=== PATIENT | male | born 1945 | race Caucasian/White ===

== ENCOUNTER 2017-08-23 18:11 | Emergency (ER) | payer MEDICARE, OTHER ==
[~2017-08-23] VITALS: Ht 175.3 cm; Wt 87.0 kg
[~2017-08-23 18:11] MED LIST: IRBE150T49 PO; ZOCO40TA PO
[2017-08-23 18:14] VITALS: BP 186/78; PULSE 64; RESP 16; TEMP 97.9; O2SAT 99
[2017-08-23] MEDS ORDERED: IRBE150T15 PO (18:23)
[2017-08-23] MEDS ORDERED: SIMV20TA PO (18:23)
[2017-08-23] MEDS ORDERED: SODIUM CHLORIDE 0.9% FLUSH 10 ML FLUSH IVF PRN (18:45)
--- NOTE | 2017-08-23 18:48 | PD ---
HPI Chief Complaint: Headache Time Seen by Provider: 18:22 Travel History International Travel<30 days: No Contact w/Intl Traveler<30days: No Traveled to known affect area: No History of Present Illness HPI The patient is a 72 year-old male who presents to the emergency department for headache. The patient has intermittent headaches of the last 2 days as well as elevated blood pressure. The patient states he recently had his blood pressure medication changed from moderate 150 mg daily to 300 mg daily. However, the patient states his blood pressure continues to be elevated with systolic reading in the 170s a diastolic in the 90s. The headache is posterior, described as pressure, intermittent, and not associated with any blurry vision or visual acuity changes. The patient denies any chest pain, shortness breath, nausea, vomiting, or abdominal pain. He denies any focal deficits. The patient states his blood pressure has been significantly more elevated over the last 2 months since he turns 72. The patient's symptoms are mild to moderate, possibly exacerbated by elevated blood pressure, there are no current alleviating factors. The patient had his blood pressure evaluated earlier today and the pharmacist referred him to the emergency department. [facility] Past Medical History Cardiovascular Problems: Yes (htn on meds) High Cholesterol: Yes Diminished Hearing: No Hypertension: Yes Influenza Vaccination: No Past Surgical History Appendectomy: Yes Tonsillectomy: Yes Social History Alcohol Use: Yes (RARE) Tobacco Use: No Substance Use: No Allergies-Medications (Allergen,Severity, Reaction): Coded Allergies: oxycodone (Unverified Allergy, Severe, GI UPSET, 08/23/17) Reported Meds & Prescriptions Reported Meds & Active Scripts Active Reported Simvastatin 20 Mg Tab 20 Mg PO DAILY Irbesartan 150 Mg Tab 150 Mg PO DAILY Review of Systems Except as stated in HPI: all other systems reviewed are Neg Eyes: No: Blurred Vision HENT: Positive: Headaches, No: Lightheadedness, Neck Pain Cardiovascular: No: Chest Pain or Discomfort Respiratory: No: Shortness of Breath Gastrointestinal: No: Nausea, Vomiting, Abdominal Pain Neurologic: Positive: Headache, No: Dizziness, Focal Abnormalities, Change in Mentation, Paresthesia, Sensory Disturbance Physical Exam Narrative GENERAL: Awake, alert, pleasant 72-year-old male who appears his stated age and is in no acute respiratory distress. SKIN: Focused skin assessment warm/dry. HEAD: Atraumatic. Normocephalic. EYES: Pupils equal and round. Pupils are 4 mm bilateral and reactive. EOMs are intact. ENT: No nasal bleeding or discharge. Mucous membranes pink and moist. NECK: Trachea midline. No JVD. No meningeal signs noted. Full range of motion with flexion, extension, and rotation. CARDIOVASCULAR: Regular rate and rhythm. No murmur appreciated. RESPIRATORY: No accessory muscle use. Clear to auscultation. Breath sounds equal bilaterally. MUSCULOSKELETAL: No obvious deformities. No clubbing. No cyanosis. No edema. NEUROLOGICAL: Awake and alert. No obvious cranial nerve deficits. Motor grossly within normal limits. Normal speech. Nonfocal. Oriented 4. Follows commands without difficulty. PSYCHIATRIC: Appropriate mood and affect; insight and judgment normal. Data Data Last Documented VS Vital Signs Date Time Temp Pulse Resp B/P (MAP) Pulse Ox O2 Delivery O2 Flow Rate FiO2 08/23/17 19:06 98 08/23/17 18:14 97.9 64 16 186/78 (114) Orders Orders Complete Blood Count With Diff (08/23/17 18:39) Comprehensive Metabolic Panel (08/23/17 18:39) Ct Brain W/O Iv Contrast(Rout) (08/23/17 18:39) Ecg Monitoring (08/23/17 18:39) Iv Access Insert/Monitor (08/23/17 18:39) Oximetry (08/23/17 18:39) Sodium Chloride 0.9% Flush (Ns Flush) (08/23/17 18:45) Creatine Kinase (Cpk) (08/23/17 18:39) Troponin I (08/23/17 18:39) Electrocardiogram (08/23/17 ) Labs Laboratory Tests Test 08/23/17 18:45 White Blood Count 6.5 TH/MM3 Red Blood Count 4.84 MIL/MM3 Hemoglobin 14.0 GM/DL Hematocrit 41.9 % Mean Corpuscular Volume 86.6 FL Mean Corpuscular Hemoglobin 29.0 PG Mean Corpuscular Hemoglobin Concent 33.4 % Red Cell Distribution Width 12.2 % Platelet Count 250 TH/MM3 Mean Platelet Volume 8.0 FL Neutrophils (%) (Auto) 60.8 % Lymphocytes (%) (Auto) 26.3 % Monocytes (%) (Auto) 10.5 % Eosinophils (%) (Auto) 1.8 % Basophils (%) (Auto) 0.6 % Neutrophils # (Auto) 4.0 TH/MM3 Lymphocytes # (Auto) 1.7 TH/MM3 Monocytes # (Auto) 0.7 TH/MM3 Eosinophils # (Auto) 0.1 TH/MM3 Basophils # (Auto) 0.0 TH/MM3 CBC Comment DIFF FINAL Differential Comment Blood Urea Nitrogen 13 MG/DL Creatinine 0.86 MG/DL Random Glucose 102 MG/DL Total Protein 6.8 GM/DL Albumin 3.6 GM/DL Calcium Level 8.0 MG/DL Alkaline Phosphatase 54 U/L Aspartate Amino Transf (AST/SGOT) 17 U/L Alanine Aminotransferase (ALT/SGPT) 36 U/L Total Bilirubin 0.2 MG/DL Sodium Level 141 MEQ/L Potassium Level 3.8 MEQ/L Chloride Level 109 MEQ/L Carbon Dioxide Level 24.7 MEQ/L Anion Gap 7 MEQ/L Estimat Glomerular Filtration Rate 88 ML/MIN Total Creatine Kinase 74 U/L Troponin I LESS THAN 0.02 NG/ML MDM Medical Decision Making Medical Screen Exam Complete: Yes Emergency Medical Condition: Yes Medical Record Reviewed: Yes Interpretation(s) EKG reveals normal sinus rhythm with a rate of 61. Moderate intraventricular conduction the leg with a QRS of 118 ms. Inverted T-wave in lead 3. Last Impressions Head CT 08/23/17 [id number] Signed Impressions: Service Date/Time: Wednesday, August 23, 2017 19:02 - CONCLUSION: Negative noncontrast head CT. Tristan Miller MD Laboratory Tests Test 08/23/17 18:45 White Blood Count 6.5 TH/MM3 Red Blood Count 4.84 MIL/MM3 Hemoglobin 14.0 GM/DL Hematocrit 41.9 % Mean Corpuscular Volume 86.6 FL Mean Corpuscular Hemoglobin 29.0 PG Mean Corpuscular Hemoglobin Concent 33.4 % Red Cell Distribution Width 12.2 % Platelet Count 250 TH/MM3 Mean Platelet Volume 8.0 FL Neutrophils (%) (Auto) 60.8 % Lymphocytes (%) (Auto) 26.3 % Monocytes (%) (Auto) 10.5 % Eosinophils (%) (Auto) 1.8 % Basophils (%) (Auto) 0.6 % Neutrophils # (Auto) 4.0 TH/MM3 Lymphocytes # (Auto) 1.7 TH/MM3 Monocytes # (Auto) 0.7 TH/MM3 Eosinophils # (Auto) 0.1 TH/MM3 Basophils # (Auto) 0.0 TH/MM3 CBC Comment DIFF FINAL Differential Comment Blood Urea Nitrogen 13 MG/DL Creatinine 0.86 MG/DL Random Glucose 102 MG/DL Total Protein 6.8 GM/DL Albumin 3.6 GM/DL Calcium Level 8.0 MG/DL Alkaline Phosphatase 54 U/L Aspartate Amino Transf (AST/SGOT) 17 U/L Alanine Aminotransferase (ALT/SGPT) 36 U/L Total Bilirubin 0.2 MG/DL Sodium Level 141 MEQ/L Potassium Level 3.8 MEQ/L Chloride Level 109 MEQ/L Carbon Dioxide Level 24.7 MEQ/L Anion Gap 7 MEQ/L Estimat Glomerular Filtration Rate 88 ML/MIN Total Creatine Kinase 74 U/L Troponin I LESS THAN 0.02 NG/ML Differential Diagnosis Differential diagnosis includes hypertension, hypertensive emergency, hypertensive urgency, hypertensive encephalopathy, medication side effect, ACS, acute kidney injury. Narrative Course IV was established, labs are drawn and sent, and the patient was placed on cardiac telemetry monitoring and continuous pulse oximetry monitoring. The patient declined pain medications for the headache. Patient's blood pressure was reevaluated, was 150/70s. The patient still has a dull headache, therefore , CT the brain was ordered to rule out intracranial hemorrhage. CT the brain was negative. Troponin and CPK are unremarkable. BUN and creatinine are within normal limits. No evidence of end organ damage. The patient was reevaluated at 8 PM. The patient was currently asymptomatic. He will be provided a copy of his CT results and lab results at discharge. He does have a home monitoring system for his blood pressure, he is advised to check it once in the morning prior to activity and caffeine, keep a log of his blood pressure recordings, and follow-up with his primary physician. The patient agrees and understands. Diagnosis Primary Impression: Hypertension Qualified Codes: I10 - Essential (primary) hypertension Patient Instructions: General Instructions Additional Instructions: Please provide the patient a copy of his EKG results, CT results, and lab results at discharge. Keep a blood pressure log daily. Follow-up with your primary physician. Return if symptoms worsen or progress. Med/Other Pt SpecificInfo: No Change to Meds Disposition: 01 DISCHARGE HOME Condition: Stable Miguel Mcqueen MD Aug 23, 2017 18:48
[2017-08-23 18:57] LABS: BASOPHIL % 0.6 % (0.0-2.0); EOSINOPHIL # 0.1 TH/MM3 (0-0.4); EOSINOPHIL % 1.8 % (0.0-4.0); HEMATOCRIT 41.9 % (39.0-51.0); HEMO FLAGS DIFF FINAL; LYMPH % 26.3 % (9.0-44.0); LYMPHOCYTE # 1.7 TH/MM3 (1.0-4.8); MEAN CELL VOLUME 86.6 FL (80.0-100.0); MEAN CORPUSCULAR HGB CONC 33.4 % (32.0-36.0); MONO % 10.5 % (0.0-8.0); NEUT % 60.8 % (16.0-70.0); PLATELET COUNT 250 TH/MM3 (150-450); RED BLOOD COUNT 4.84 MIL/MM3 (4.50-5.90); RED CELL DISTRIBUTION WIDTH 12.2 % (11.6-17.2); WHITE BLOOD COUNT 6.5 TH/MM3 (4.0-11.0)
[2017-08-23 19:06] VITALS: O2SAT 98
[2017-08-23 19:19] LABS: CHLORIDE 109 MEQ/L (98-107); POTASSIUM 3.8 MEQ/L (3.5-5.1); SODIUM (NA) 141 MEQ/L (136-145)
[2017-08-23 19:24] LABS: ANION GAP 7 MEQ/L (5-15); BICARBONATE 24.7 MEQ/L (21.0-32.0); BLOOD UREA NITROGEN 13 MG/DL (7-18)
[2017-08-23 19:27] LABS: ALT (GPT) 36 U/L (12-78); AST (GOT) 17 U/L (15-37); GLOMERULAR FILTRATION RATE 88 ML/MIN (>89)
--- NOTE | 2017-08-23 19:28 | RADRPT ---
EXAM DATE/TIME: 08/23/2017 19:02 [place] COMPARISON: No previous studies available for comparison. INDICATIONS : Headache with hypertension. RADIATION DOSE: 61.13 CTDIvol (mGy) MEDICAL HISTORY : Hypercholesterolemia. Hypertension. SURGICAL HISTORY : Tonsillectomy. Appendectomy. ENCOUNTER: Initial ACUITY: 1 day PAIN SCALE: 5/10 LOCATION: cranial TECHNIQUE: Multiple contiguous axial images were obtained of the head. Using automated exposure control and adj ustment of the mA and/or kV according to patient size, radiation dose was kept as low as reasonably a chievable to obtain optimal diagnostic quality images. DICOM format image data is available electro nically for review and comparison. FINDINGS: CEREBRUM: The ventricles are normal for age. No evidence of midline shift, mass lesion, hemorrhage or acute in farction. No extra-axial fluid collections are seen. POSTERIOR FOSSA: The cerebellum and brainstem are intact. The 4th ventricle is midline. The cerebellopontine angle i s unremarkable. EXTRACRANIAL: The visualized portion of the orbits is intact. SKULL: The calvaria is intact. No evidence of skull fracture. CONCLUSION: Negative noncontrast head CT. Tristan Miller MD on August 23, 2017 at 19:25 Board Certified Radiologist. This report was verified electronically.
[2017-08-23 19:29] LABS: TOTAL BILIRUBIN ADULT 0.2 MG/DL (0.2-1.0)
[2017-08-23 19:30] LABS: ALKALINE PHOSPHATASE 54 U/L (45-117)
[2017-08-23 19:58] LABS: CREATINE KINASE 74 U/L (39-308)
[2017-08-23 20:15] VITALS: BP 144/62; PULSE 60; RESP 16; O2SAT 97
[2017-08-23 20:47] VITALS: BP 144/62; PULSE 60; RESP 16; O2SAT 97
--- NOTE | 2017-08-24 18:50 | EKG ---
Date Performed: 08/23/2017 Time Performed: 19:02:03 PTAGE: 72 years EKG: Sinus rhythm MARKED LEFT AXIS DEVIATION MODERATE INTRAVENTRICULAR CONDUCTION DELAY ABNORMAL ECG NO PREVIOUS TRACING DOCTOR: Jonathan Tucker Interpretating Date/Time 08/24/2017 18:49:28
== END 2017-08-23 20:30 | disposition home or self-care (01) ==
LOC: PHED 18:11
DX: I10 Essential (primary) hypertension (principal); E78.00 Pure hypercholesterolemia, unspecified; R94.31 Abnormal electrocardiogram [ECG] [EKG]; Z88.5 Allergy status to narcotic agent; Z79.899 Other long term (current) drug therapy
CPT/HCPCS: 70450; 80053; 82550; 84484; 85025; 93005

== ENCOUNTER 2018-08-22 01:01 | Observation (INO) ==
[2018-08-22 02:57] LABS: Bilirubin,Urine Negative (Negative); Clarity,Urine Clear (Clear); Color,Urine Yellow (Yellw/Straw); Glucose,Urine (UA) Negative (Negative); Leukocyte Esterase,Urine Negative (Negative); Nitrite,Urine Negative (Negative); Specific Gravity,Urine 1.025 (1.002-1.035); Urobilinogen,Urine 0.2 mg/dL (Less than 2)
[2018-08-22 03:07] LABS: Baso % (Auto) 0.6 % (0.0-2.0); Eos # (Auto) 0.1 th/mm3 (0.0-0.4); Eos % (Auto) 1.9 % (0.0-4.0); Hemoglobin 14.9 gm/dL (13.0-17.0); Lymph # (Auto) 1.3 th/mm3 (1.0-4.8); Lymph % (Auto) 23.9 % (9.0-44.0); Mean Corpuscular HGB Conc 33.8 % (32.0-36.0); Mean Corpuscular Hemoglobin 29.8 pg (27.0-34.0); Mean Corpuscular Volume 88.2 fL (80.0-100.0); Mean Platelet Volume 8.1 fL (7.0-11.0); Mono # (Auto) 0.6 th/mm3 (0.0-0.9); Mono % (Auto) 11.3 % (0.0-8.0); Neut # (Auto) 3.4 th/mm3 (1.8-7.7); Neut % (Auto) 62.3 % (16.0-70.0); Platelet Count 266 th/mm3 (150-450); Red Blood Count 4.99 mil/mm3 (4.50-5.90); Red Cell Distribution Width 12.4 % (11.6-17.2); White Blood Count 5.4 th/mm3 (4.0-11.0)
--- NOTE | 2018-08-22 03:16 | XR ---
EXAM DATE: 08/22/2018 2:44 AM EST AGE/SEX: 73 years / Male INDICATIONS: Arrythmia, palpitations. CLINICAL DATA: This is the patient's initial encounter. Patient reports that signs and symptoms have been present for 1 day and indicates a pain score of 0/10. MEDICAL/SURGICAL HISTORY: . Hypercholesterolemia. Hypertension. Appendectomy. Tonsillectomy. Right knee. Right shoulder. COMPARISON: No prior exams available for comparison. FINDINGS: Portable AP view of the chest demonstrates a normal-sized cardiac silhouette. No effusion, consolidat ion, or pneumothorax is identified. The bones and soft tissues demonstrate no acute finding. EKG line s overlie the patient. CONCLUSION: No acute cardiopulmonary abnormality is identified. Electronically signed by: Tristan Howe MD 08/22/2018 3:15 AM EST
[2018-08-22 03:20] LABS: Chloride 108 meq/L (98-107); Potassium 4.1 meq/L (3.5-5.1); Sodium 142 meq/L (136-145)
[2018-08-22 03:24] LABS: Calcium 8.4 mg/dL (8.5-10.1)
[2018-08-22 03:25] LABS: Albumin 3.8 g/dL (3.4-5.0); Anion Gap 8 meq/L (5-15); Blood Urea Nitrogen 11 mg/dL (7-18); Carbon Dioxide 25.8 meq/L (21.0-32.0); Glucose,Random 101 mg/dL (74-106); Lipase 241 U/L (73-393); Magnesium 2.3 mg/dL (1.5-2.5)
[2018-08-22 03:28] LABS: Alanine Aminotransferase 36 U/L (12-78); Aspartate Aminotransferase 23 U/L (15-37); Glomerular Filtration Rate 89 mL/min (>89)
[2018-08-22 03:29] LABS: Total Protein 7.2 g/dL (6.4-8.2)
[2018-08-22 03:29] LABS: Squamous Epithelial Cell,Urine 0-5 /hpf (0-5); WBC,Urine 0-5 /hpf (0-5)
[2018-08-22 03:30] LABS: Alkaline Phosphatase 54 U/L (45-117); Creatine Kinase 127 U/L (39-308)
[2018-08-22 03:43] LABS: Creatine Kinase MB 1.2 ng/mL (0.5-3.6)
[2018-08-22] MEDS ORDERED: Acetaminophen 500 MG Tablet PO PRN ×2 (05:07→05:10)
--- NOTE | 2018-08-22 05:10 | ED ---
HPI General Chief Complaint: Arrhythmia / Palpitations Stated Complaint: Woke up sweaty,chest burning,heart racing Time Seen by Provider: 08/22/18 02:24 Source: patient and family Mode of arrival: ambulatory Limitations: no limitations History of Present Illness HPI narrative: 73-year-old male presents to the emergency department in the care of his spouse for evaluation of awakening from sleep with sweats burning in his chest and possible palpitations. Patient states he feels some improved at this time. interjects that he did have a similar episode with tight squeezing pain 1 week ago. Patient does have risk factors for male age 73 hypertension dyslipidemia and premature onset heart disease in his father who at age 48 from myocardial infarction. Patient denies tobacco use or diabetes. Patient states that he does not take daily aspirin. Patient rates pain 0/10 at this time. complaint: Reports chest pain STEMI Alert: No Onset (ago): minute(s) Duration: intermittent and improved Onset: during rest Pain location: Reports substernal Severity: moderate Severity scale (1-10): 4 Quality: Reports tightness (x1 last week) and other (burn) Pain radiation: Reports none Relieving factors: nothing Exacerbating factors: nothing and other (at rest and awakened from sleep) Context: Denies recent illness, recent surgery, recent immobilization, recent travel, trauma/injury, new medications and history of DVT/PE Associated symptoms: Reports diaphoresis and palpitations; Denies nausea, vomiting, dyspnea, sense of impending doom, syncope, fever, cough and leg swelling Treatments prior to arrival chest pain: Reports none Related Data Home Medications Medication Instructions Recorded Confirmed irbesartan 150 mg PO DAILY 08/22/18 08/22/18 simvastatin 20 mg PO DAILY 08/22/18 08/22/18 Allergies Allergy/AdvReac Type Severity Reaction Status Date / Time oxycodone Allergy Severe GI UPSET Verified 08/22/18 03:27 codeine Allergy Rash Verified 08/22/18 02:34 tramadol AdvReac Weakness Verified 08/22/18 02:34 Review of Systems ROS: all other systems reviewed are negative [facility] Medical History Medical History High cholesterol (Acute) Hypertension (Acute) Surgical History Surgical History H/O shoulder surgery (Acute) History of appendectomy (Acute) History of hernia surgery (Acute) Hx of knee surgery (Acute) Hx of tonsillectomy (Acute) Family History Family History Father DVT (deep venous thrombosis) Social History Social History Substance History: No History of Abuse Second Hand Smoke Exposure: No Smoking Status: Never smoker How Often Do You Have a Drink Containing Alcohol: 4 or more times a week Recent Travel in [facility] within the Last 8 Weeks: No Recent Out of Country Travel within the Last 8 Weeks: No Immunization History Tetanus Immunization: Unsure Exam Narrative Exam Narrative: GENERAL: Well-nourished, well-developed patient. SKIN: Focused skin assessment warm/dry. HEAD: Normocephalic. EYES: No scleral icterus. No injection or drainage. NECK: Supple, trachea midline. No JVD or lymphadenopathy. CARDIOVASCULAR: Regular rate and rhythm without murmurs, gallops, or rubs. RESPIRATORY: Breath sounds equal bilaterally. No accessory muscle use. GASTROINTESTINAL: Abdomen soft, non-tender, nondistended. MUSCULOSKELETAL: No cyanosis, or edema. BACK: Nontender without obvious deformity. No CVA tenderness. 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 [facility] Initial Documented Vital Signs Pulse Rate 71 08/22/18 02:00 Respiratory Rate 18 08/22/18 02:00 Blood Pressure 164/73 H 08/22/18 02:00 Pulse Oximetry 96 08/22/18 02:00 Last Documented Vital Signs Temperature 97.7 F 08/22/18 12:00 Pulse Rate 53 L 08/22/18 12:00 Respiratory Rate 14 08/22/18 12:00 Blood Pressure 146/66 H 08/22/18 12:00 Pulse Oximetry 97 08/22/18 12:00 Medical Decision Making [facility] Narrative Medical decision making narrative: 73-year-old male presents to the emergency department in the care of his spouse for evaluation of awakening from sleep with sweats burning in his chest and possible palpitations. Patient states he feels some improved at this time. interjects that he did have a similar episode with tight squeezing pain 1 week ago. Patient does have risk factors for male age 73 hypertension dyslipidemia and premature onset heart disease in his father who at age 48 from myocardial infarction. Patient denies tobacco use or diabetes. Patient states that he does not take daily aspirin. Patient rates pain 0/10 at this time. Patient placed on kiln packer with continuous pulse oximetry IV access obtained specimens collected and sent for resulting EKG performed which revealed sinus rhythm with no acute ST elevation or injury pattern change noted Patient administered aspirin Lab values found to be grossly within normal limits Patient initially states that he would like to be discharged home discussed with patient risk factor profile and he agrees agreeable to observation admission for further evaluation as he states his been greater than 4-6 years since his last stress test which was normal reportedly in [facility]. Medical Screen Exam Complete: Yes Emergency Medical Condition: Yes Differential Diagnosis Differential Diagnosis: Chest pain, palpitations, arrhythmia, ACS, MN, dissection Medical Records Medical records reviewed: Yes I reviewed the patient's medical records. Lab Data Lab results reviewed: Yes I reviewed the patient's lab results. Result diagrams: 08/22/18 02:11 08/22/18 02:11 Lab Results 08/22/18 08/22/18 08/22/18 Range/Units 02:11 02:11 02:11 CBC w Diff Auto diff final WBC 5.4 (4.0-11.0) th/mm3 RBC 4.99 (4.50-5.90) mil/mm3 Hgb 14.9 (13.0-17.0) gm/dL Hct 44.0 (39.0-51.0) % MCV 88.2 (80.0-100.0) fL MCH 29.8 (27.0-34.0) pg MCHC 33.8 (32.0-36.0) % RDW 12.4 (11.6-17.2) % Plt Count 266 (150-450) th/mm3 MPV 8.1 (7.0-11.0) fL Neut % (Auto) 62.3 (16.0-70.0) % Lymph % (Auto) 23.9 (9.0-44.0) % Deuel % (Auto) 11.3 H (0.0-8.0) % Eos % (Auto) 1.9 (0.0-4.0) % Baso % (Auto) 0.6 (0.0-2.0) % Neut # (Auto) 3.4 (1.8-7.7) th/mm3 Lymph # (Auto) 1.3 (1.0-4.8) th/mm3 Deuel # (Auto) 0.6 (0.0-0.9) th/mm3 Eos # (Auto) 0.1 (0.0-0.4) th/mm3 Baso # (Auto) 0.0 (0.0-0.2) th/mm3 WBC Differential . Differential Comment . Sodium 142 (136-145) meq/L Potassium 4.1 (3.5-5.1) meq/L Chloride 108 H (98-107) meq/L Carbon Dioxide 25.8 (21.0-32.0) meq/L Anion Gap 8 (5-15) meq/L BUN 11 (7-18) mg/dL Creatinine 0.85 (0.60-1.30) mg/dL Estimated GFR 89 (>89) mL/min Random Glucose 101 (74-106) mg/dL Calcium 8.4 L (8.5-10.1) mg/dL Magnesium 2.3 (1.5-2.5) mg/dL Total Bilirubin 0.3 (0.2-1.0) mg/dL AST 23 (15-37) U/L ALT 36 (12-78) U/L Alkaline Phosphatase 54 (45-117) U/L Total Creatine Kinase 127 (39-308) U/L CK-MB (CK-2) 1.2 (0.5-3.6) ng/mL Troponin I Less than 0.02 L (0.02-0.05) ng/mL B-Natriuretic Peptide 13 (0-100) pg/mL Total Protein 7.2 (6.4-8.2) g/dL Albumin 3.8 (3.4-5.0) g/dL Lipase 241 (73-393) U/L Urine Color (Yellw/Straw) Urine Clarity (Clear) Urine pH (5.0-8.5) Ur Specific Partridge (1.002-1.035) Urine Protein (Neg-Trace) mg/dL Urine Glucose (UA) (Negative) mg/dL Urine Ketones (Negative) mg/dL Urine Occult Blood (Negative) Urine Nitrate (Negative) Urine Bilirubin (Negative) Urine Urobilinogen (Less than 2) mg/dL Ur Leukocyte Esterase (Negative) Urine WBC (0-5) /hpf Ur Squamous Epith Cells (0-5) /hpf Micro UA Comment Ur Microscopic Review Urine Culture Comments 08/22/18 08/22/18 08/22/18 Range/Units 02:37 05:28 08:44 CBC w Diff WBC (4.0-11.0) th/mm3 RBC (4.50-5.90) mil/mm3 Hgb (13.0-17.0) gm/dL Hct (39.0-51.0) % MCV (80.0-100.0) fL MCH (27.0-34.0) pg MCHC (32.0-36.0) % RDW (11.6-17.2) % Plt Count (150-450) th/mm3 MPV (7.0-11.0) fL Neut % (Auto) (16.0-70.0) % Lymph % (Auto) (9.0-44.0) % Deuel % (Auto) (0.0-8.0) % Eos % (Auto) (0.0-4.0) % Baso % (Auto) (0.0-2.0) % Neut # (Auto) (1.8-7.7) th/mm3 Lymph # (Auto) (1.0-4.8) th/mm3 Deuel # (Auto) (0.0-0.9) th/mm3 Eos # (Auto) (0.0-0.4) th/mm3 Baso # (Auto) (0.0-0.2) th/mm3 WBC Differential Differential Comment Sodium (136-145) meq/L Potassium (3.5-5.1) meq/L Chloride (98-107) meq/L Carbon Dioxide (21.0-32.0) meq/L Anion Gap (5-15) meq/L BUN (7-18) mg/dL Creatinine (0.60-1.30) mg/dL Estimated GFR (>89) mL/min Random Glucose (74-106) mg/dL Calcium (8.5-10.1) mg/dL Magnesium (1.5-2.5) mg/dL Total Bilirubin (0.2-1.0) mg/dL AST (15-37) U/L ALT (12-78) U/L Alkaline Phosphatase (45-117) U/L Total Creatine Kinase 116 105 (39-308) U/L CK-MB (CK-2) (0.5-3.6) ng/mL Troponin I Less than 0.02 L Less than 0.02 L (0.02-0.05) ng/mL B-Natriuretic Peptide (0-100) pg/mL Total Protein (6.4-8.2) g/dL Albumin (3.4-5.0) g/dL Lipase (73-393) U/L Urine Color Yellow (Yellw/Straw) Urine Clarity Clear (Clear) Urine pH 6.0 (5.0-8.5) Ur Specific [place] 1.025 (1.002-1.035) Urine Protein Negative (Neg-Trace) mg/dL Urine Glucose (UA) Negative (Negative) mg/dL Urine Ketones Negative (Negative) mg/dL Urine Occult Blood Trace (Negative) Urine Nitrate Negative (Negative) Urine Bilirubin Negative (Negative) Urine Urobilinogen 0.2 (Less than 2) mg/dL Ur Leukocyte Esterase Negative (Negative) Urine WBC 0-5 (0-5) /hpf Ur Squamous Epith Cells 0-5 (0-5) /hpf Micro UA Comment Culture not ind Ur Microscopic Review Microscopic reviewed Urine Culture Comments Culture not ind Imaging Data Radiologist's impression: Myocardial Perfusion Scan Nuc Med 08/22/18 00:00 CONCLUSION: 1. Unremarkable myocardial perfusion examination. Chest X-Ray 08/22/18 02:24 CONCLUSION: No acute cardiopulmonary abnormality is identified. ECG Data EKG Prior to Arrival: No Attestation: I personally reviewed and interpreted this ECG as follows: (EKG normal sinus rhythm rate [address] elevation injury pattern or ectopy noted ) Discharge Plan Discharge Disposition Patient Disposition: ED Admit(ED Internal Use Only) Discharge Condition Condition: Stable Discharge Order Discharge Orders: Discharge Order (Routine); Ordered 08/22/18 Ordered By: Gala Soto ED Use Only Admit Order (Routine); Ordered 08/22/18 Ordered By: Andreea Tracey Discharge Details Anticipated Discharge Date: 08/22/18 Diagnosis: Chest pain Physicians Team ED Provider: Andreea Tracey Primary Care Provider: Felipe Guillaume Attending Provider: Daren Dubon Other Providers: ToniHumansarah Status ED Status: Left Department Discharge Information Discharge Date/Time: 08/22/18 06:11
[2018-08-22 05:53] LABS: Creatine Kinase 116 U/L (39-308)
[2018-08-22] MEDS ORDERED: Aspirin 325 MG Tablet PO SCH (09:00)
[2018-08-22 09:08] VITALS: RESP 14
--- NOTE | 2018-08-22 09:28 | P.HP ---
History of Present Illness Primary Care Physician: Felipe Guillaume MD Chief Complaint: palpitations History of Present Illness: This is a very pleasant 73-year-old male patient with a known medical history of hypertension hyperlipidemia presented to the ED with complaints of palpitations. Patient states that yesterday he had a relatively stressful day, states he went to bed around 2000 and woke up around midnight pouring in sweat with palpitations. He states that he took his blood pressure at the time which was reportedly 180/89 with his heart rate in the 80s. His insisted that he be brought to the hospital. Upon arrival patient symptoms did improve. It should be noted that he has been having what he calls triggers in the midsternal chest area occurring up to 10 times per day and lasting several seconds and going away. He denies any known aggravating or relieving factors that make these triggers occur. He states that this sensation is also associated with some pressure. He denies any radiation of the pressure, he denies any associated nausea or vomiting. He does admit to some heartburn, for which he takes some antacids as needed [id number]. It should be noted that patient underwent a cardiac stress test roughly 7 years ago for prior chest pain which was reportedly unremarkable. 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 He has been relatively healthy since that time. He does take antihypertensive and hyperlipidemia daily. Denies any tobacco abuse or history of tobacco abuse. Family history is not significant for any cardiovascular disease. At the time of assessment patient is feeling much improved, he did rule out for ACS with serial EKGs and serial troponins. Will undergo a cardiac Lexiscan. - Diagnosis (1) Chest pain Review of Systems All other systems reviewed negative except as stated in HPI PMFSH - History History Provided By: Patient - Medical History Medical History: Medical History (Last Reviewed 08/22/18 @ 09:24 by Gala Soto) High cholesterol Hypertension - Surgical History Surgical History: Surgical History (Last Reviewed 08/22/18 @ 09:24 by Gala Soto) H/O shoulder surgery History of appendectomy History of hernia surgery Hx of knee surgery Hx of tonsillectomy - Family History Family History: Family History (Last Updated 08/22/18 @ 09:25 by Gala Soto) Father DVT (deep venous thrombosis) - Social History I have reviewed the patient's Social History: Yes - Tobacco History Second Hand Smoke Exposure: No Tobacco Use In Past 30 Days: No Smoking Status: Never smoker - Alcohol History How Often Do You Have a Drink Containing Alcohol: 4 or more times a week - Substance Use History Substance History: No History of Abuse - Travel History Recent Travel in the [facility] Within the Last 8 Weeks: No Recent Travel Out of the Country Within the Last 8 Weeks: No - Immunization History Tetanus Immunization: >5 Years Hx Influenza Vaccine This Season: No Medications and Allergies Active Medications: Active Medications Acetaminophen (Tylenol) 650 mg PO Q4H PRN PRN Reason: Headache/Pain Aspirin (Aspirin) 325 mg PO DAILY [facility] Last Admin: 08/22/18 08:39 Dose: 325 mg Losartan Potassium (Cozaar) 50 mg PO DAILY [facility] Last Admin: 08/22/18 08:38 Dose: 50 mg Nitroglycerin (Nitrostat Sl) 0.4 mg SL Q5M PRN PRN Reason: CHEST PAIN Ondansetron HCl (Zofran Inj) 4 mg IV.PUSH Q6H PRN PRN Reason: NAUSEA Pravastatin Sodium (Pravachol) 20 mg PO DAILY [facility] Last Admin: 08/22/18 08:39 Dose: 20 mg Sodium Chloride (Ns Flush) 2 ml IV.FLUSH BID [facility] Last Admin: 08/22/18 08:41 Dose: 2 ml Sodium Chloride (Ns Flush) 2 ml IV.FLUSH PRN PRN PRN Reason: FLUSH AFTER USING IV ACCESS Allergies Allergy/AdvReac Type Severity Reaction Status Date / Time oxycodone Allergy Severe GI UPSET Verified 08/22/18 03:27 codeine Allergy Rash Verified 08/22/18 02:34 tramadol AdvReac Weakness Verified 08/22/18 02:34 Home Medications Medication Instructions Recorded Confirmed Type irbesartan 150 mg PO DAILY 08/22/18 08/22/18 History simvastatin 20 mg PO DAILY 08/22/18 08/22/18 History Exam Vital signs: Vital Signs 08/22/18 02:00 08/22/18 02:24 08/22/18 02:46 Temperature Pulse Rate 71 69 69 Respiratory Rate 18 18 Blood Pressure 164/73 H 141/74 H Pulse Oximetry 96 96 96 08/22/18 04:21 08/22/18 06:33 08/22/18 08:00 Temperature 98 F 97.6 F Pulse Rate 66 60 65 Respiratory Rate 18 20 14 Blood Pressure 148/91 H 153/72 H 145/69 H Pulse Oximetry 97 96 99 Intake & Output 08/21/18 08/22/18 08/22/18 18:59 06:59 18:59 Weight 85.6 kg Other: Weight On Admission 85.6 kg Narrative: GENERAL: Well-developed, well-nourished patient in [facility]. SKIN: Warm and dry. No rash. HEAD: Normocephalic. Atraumatic. EYES: Pupils equal and round. No scleral icterus. No injection or drainage. ENT: No nasal bleeding or discharge. Mucous membranes pink and moist. NECK: Supple. Trachea midline. CARDIOVASCULAR: Regular rate and rhythm. S1, S2 noted. No murmur appreciated. Chest pain to palpation. RESPIRATORY: No accessory muscle use. Clear to auscultation. Breath sounds equal bilaterally. GASTROINTESTINAL: Abdomen soft, non-tender, nondistended. Normoactive bowel sounds x4. MUSCULOSKELETAL: No obvious deformities. Extremities without clubbing, cyanosis , or edema. NEUROLOGICAL: Awake and alert. No obvious cranial nerve deficits. Motor grossly within normal limits. 5/5 muscle strength in bilateral upper and lower extremities. Normal speech. PSYCHIATRIC: Appropriate mood and affect; insight and judgment normal. Results - Labs CBC & Chem 7: 08/22/18 02:11 08/22/18 02:11 Labs: Laboratory Results - last 24 hr 08/22/18 08/22/18 08/22/18 02:11 02:11 02:11 CBC w Diff Auto diff final WBC 5.4 RBC 4.99 Hgb 14.9 Hct 44.0 MCV 88.2 MCH 29.8 MCHC 33.8 RDW 12.4 Plt Count 266 MPV 8.1 Neut % (Auto) 62.3 Lymph % (Auto) 23.9 [place] % (Auto) 11.3 H Eos % (Auto) 1.9 Baso % (Auto) 0.6 Neut # (Auto) 3.4 Lymph # (Auto) 1.3 [place] # (Auto) 0.6 Eos # (Auto) 0.1 Baso # (Auto) 0.0 WBC Differential . Differential Comment . Sodium 142 Potassium 4.1 Chloride 108 H Carbon Dioxide 25.8 Anion Gap 8 BUN 11 Creatinine 0.85 Estimated GFR 89 Random Glucose 101 Calcium 8.4 L Magnesium 2.3 Total Bilirubin 0.3 AST 23 ALT 36 Alkaline Phosphatase 54 Total Creatine Kinase 127 CK-MB (CK-2) 1.2 Troponin I Less than 0.02 L B-Natriuretic Peptide 13 Total Protein 7.2 Albumin 3.8 Lipase 241 Urine Color Urine Clarity Urine pH Ur Specific [place] Urine Protein Urine Glucose (UA) Urine Ketones Urine Occult Blood Urine Nitrate Urine Bilirubin Urine Urobilinogen Ur Leukocyte Esterase Urine WBC Ur Squamous Epith Cells Micro UA Comment Ur Microscopic Review Urine Culture Comments 08/22/18 08/22/18 02:37 05:28 CBC w Diff WBC RBC Hgb Hct MCV MCH MCHC RDW Plt Count MPV Neut % (Auto) Lymph % (Auto) [place] % (Auto) Eos % (Auto) Baso % (Auto) Neut # (Auto) Lymph # (Auto) [place] # (Auto) Eos # (Auto) Baso # (Auto) WBC Differential Differential Comment Sodium Potassium Chloride Carbon Dioxide Anion Gap BUN Creatinine Estimated GFR Random Glucose Calcium Magnesium Total Bilirubin AST ALT Alkaline Phosphatase Total Creatine Kinase 116 CK-MB (CK-2) Troponin I Less than 0.02 L B-Natriuretic Peptide Total Protein Albumin Lipase Urine Color Yellow Urine Clarity Clear Urine pH 6.0 Ur Specific [place] 1.025 Urine Protein Negative Urine Glucose (UA) Negative Urine Ketones Negative Urine Occult Blood Trace Urine Nitrate Negative Urine Bilirubin Negative Urine Urobilinogen 0.2 Ur Leukocyte Esterase Negative Urine WBC 0-5 Ur Squamous Epith Cells 0-5 Micro UA Comment Culture not ind Ur Microscopic Review Microscopic reviewed Urine Culture Comments Culture not ind - Imaging Impressions Chest X-Ray 08/22/18 02:24 CONCLUSION: No acute cardiopulmonary abnormality is identified. Caprini VTE Risk Assessment Caprini VTE Risk Assessment: Moderate/High Risk (score >= 2) Caprini Risk Assessment Model: Point Value = 1 Point Value = 2 Point Value = 3 Point Value = 5 Age 41-60 Minor surgery BMI > 25 kg/m2 Swollen legs Varicose veins or History of unexplained or recurrent spontaneous Oral contraceptives or hormone replacement Sepsis (< 1 month) Serious lung disease, including pneumonia (< 1 month) Abnormal pulmonary function Acute myocardial infarction Congestive heart failure (< 1 month) History of inflammatory bowel disease Medical patient at bed rest Age 61-74 Arthroscopic surgery Major open surgery (> 45 min) Laparoscopic surgery (> 45 min) Malignancy Confined to bed (> 72 hours) Immobilizing plaster cast Central venous access Age >= 75 History of VTE Family history of VTE Factor V Leiden Prothrombin [id number] Lupus anticoagulant Anticardiolipin antibodies Elevated serum homocysteine Heparin-induced thrombocytopenia Other congenital or acquired thrombophilia Stroke (< 1 month) Elective arthroplasty Hip, pelvis, or leg fracture Acute spinal cord injury (< 1 month) Prophylaxis Regimen: Total Risk Factor Score Risk Level Prophylaxis Regimen 0-1 Low Early ambulation 2 Moderate Order ONE of the following: *Sequential Compression Device (SCD) *Heparin 5000 units SQ BID 3-4 Higher Order ONE of the following medications: *Heparin 5000 units SQ TID *Enoxaparin/Lovenox 40 mg SQ daily (WT < 150 kg, CrCl > 30 mL/min) *Enoxaparin/Lovenox 30 mg SQ daily (WT < 150 kg, CrCl > 10-29 mL/min) *Enoxaparin/Lovenox 30 mg SQ BID (WT < 150 kg, CrCl > 30 mL/min) AND/OR *Sequential Compression Device (SCD) 5 or more Highest Order ONE of the following medications: *Heparin 5000 units SQ TID (Preferred with Epidurals) *Enoxaparin/Lovenox 40 mg SQ daily (WT < 150 kg, CrCl > 30 mL/min) *Enoxaparin/Lovenox 30 mg SQ daily (WT < 150 kg, CrCl > 10-29 mL/min) *Enoxaparin/Lovenox 30 mg SQ BID (WT < 150 kg, CrCl > 30 mL/min) AND *Sequential Compression Device (SCD) Assessment and Plan - Assessment (1) Chest pain Code(s): R07.9 - Chest pain, unspecified Status: Acute Plan: -Patient has been admitted to the chest pain center for observation. -Serial EKGs and serial troponins have been ordered for ruling out ACS purposes. Serial troponins flat. -EKG reviewed showing sinus rhythm with no ST changes to indicate any ischemia. -Blood pressure was elevated on presentation, this is now improved. We will continue to monitor trends. -Cardiac telemetry continued overnight, no arrhythmias noted. -Chest x-ray reviewed showing no acute cardiopulmonary disease. CBC and BMP reviewed, essentially unremarkable. UA is negative. Patient symptoms have improved. -Patient does have a history of hyperlipidemia and hypertension for which he takes antihypertensive and statin. -Patient will undergo a cardiac Lexiscan to further rule out any ischemia. -Patient stable at this time and agreeable to plan. Further hospitalization and treatment plan will depend on nuclear imaging results. (1) Chest pain Qualifiers: Chest pain type: precordial pain Qualified Code(s): R07.2 - Precordial pain
[2018-08-22 10:15] LABS: Creatine Kinase 105 U/L (39-308)
[2018-08-22] MEDS ORDERED: Regadenoson Inj 0.4 MG/5 ML Syringe IV.PUSH ONE (11:08)
--- NOTE | 2018-08-22 11:18 | ECG ---
Date Performed: 08/22/2018 Time Performed: 05:24:50 PTAGE: 73 years EKG: SINUS BRADYCARDIA LEFT ANTERIOR FASCICULAR BLOCK ABNORMAL ECG No significant change PREVIOUS TRACING : 08/22/2018 01.16 DOCTOR: Suleiman Mckeon Interpretating Date/Time 08/22/2018 11:16:09
--- NOTE | 2018-08-22 11:19 | ECG ---
Date Performed: 08/22/2018 Time Performed: 01:16:09 PTAGE: 73 years EKG: Sinus rhythm LEFT ANTERIOR FASCICULAR BLOCK ABNORMAL ECG PREVIOUS TRACING : 08/23/2017 19.02 DOCTOR: Suleiman Mckeon Interpretating Date/Time 08/22/2018 11:17:54
--- NOTE | 2018-08-22 12:22 | NM ---
EXAM DATE: 08/22/2018 12:19 PM EST AGE/SEX: 73 years / Male INDICATIONS:Angina. . Chest pain with diaphoresis. CLINICAL DATA: This is the patient's initial encounter. Patient reports that signs and symptoms have been present for 1 day and indicates a pain score of 4/10. MEDICAL/SURGICAL HISTORY: Hypertension. Hypercholesterolemia. Appendectomy. Tonsillectomy. Ri ght shoulder and knee. COMPARISON: No prior exams available for comparison. DOSE: 8.8 mCi Tc 99m Myoview at rest 27.4 mCi [id number] at stress 0.4 mg Lexiscan STRESS SYMPTOMS: Chest pain and dyspnea. EJECTION FRACTION: 70 % TECHNIQUE: The patient underwent pharmacologic stress with infusion of prescribed dose. Continuous ECG tracing was monitored during stress. Gated SPECT imaging was performed after stress and conventi onal SPECT imaging was performed at rest. The examination was performed on a SPECT/CT scanner, both attenuation and non-corrected datasets were reviewed. FINDINGS: Distribution: The maximum perfused segment at stress is in the septal wall. Perfusion Study: The pattern of perfusion at stress is within normal limits. Gated Study: There are intact wall motion and wall thickening without hypokinetic or dyskinetic segm ents. The ejection fraction is calculated at 70%. RISK CATEGORY: Low (<1% Annual Motality Rate) CONCLUSION: 1. Unremarkable myocardial perfusion examination. Electronically signed by: Eric Miller MD 08/22/2018 12:20 PM EST
[2018-08-22 13:50] VITALS: BP 146/66; PULSE 53; TEMP 97.7; O2SAT 97
--- NOTE | 2018-08-23 15:49 | TR ---
Date Performed: 08/22/2018 Time Performed: 11:33:38 DOCTOR: Mike Hooks DRUG LIST: CLINICAL HISTORY: REASON FOR TEST: Chest pain REASON FOR ENDING: OBSERVATION: CONCLUSION: COMMENTS: Lexiscan stress test was performed under standard four minute protocol. Radionuclide was injected one minute prior to ending the test. No electrocardiographic abormalities were present t o suggest ischemia. Nuclear imaging and interpretation are pending.
== END 2018-08-22 13:55 | disposition home or self-care (01) ==
LOC: PHEDA 01:01 → PHED 01:01 → PH3 06:06
PROVIDERS: ADMIT Internal Medicine; ATTEND Internal Medicine